=== PATIENT | female | born 1980 | race Caucasian/White ===

== ENCOUNTER 2022-07-01 13:15 | Emergency (ER) | payer OTHER ==
[2022-07-01 13:26] VITALS: TEMP 98.2; BMI 22.6
[2022-07-01 15:34] LABS: HEMATOCRIT 34.5 % (32.4-45.2); HEMOGLOBIN 11.3 GM/dL (10.7-15.3); MCH 28.5 pg (25.7-33.7); MCHC 32.8 g/dl (32.0-36.0); MEAN PLT VOLUME 7.3 fl (7.5-11.1); PLATELET COUNT 544 10^3/uL (134-434); RBC 3.97 M/mm3 (3.60-5.2); RDW 14.4 % (11.6-15.6)
[2022-07-01 15:53] LABS: CHLORIDE 102 mmol/L (98-107); SODIUM 138 mmol/L (136-145)
[2022-07-01 15:55] LABS: CALCIUM 9.2 mg/dL (8.5-10.1)
[2022-07-01 15:56] LABS: ALBUMIN 2.8 g/dl (3.4-5.0); ANION GAP 9 MMOL/L (8-16); CO2 26 mmol/L (21-32); GLUCOSE,RANDOM 88 mg/dL (74-106)
[2022-07-01 15:59] LABS: CREATININE 0.5 mg/dL (0.55-1.3); SGOT/AST 28 U/L (15-37); SGPT/ALT 27 U/L (13-61)
[2022-07-01 16:01] LABS: BILIRUBIN,TOTAL < 0.1 mg/dL (0.2-1)
[2022-07-01 16:02] LABS: ALK PHOS 84 U/L (45-117)
[2022-07-01 17:01] LABS: ANISOCYTOSIS 1+; MACROCYTOSIS 0; OVALOCYTE 1+
[2022-07-01 17:18] VITALS: BP 115/62; PULSE 68; RESP 17
[2022-07-01 18:01] LABS: BASO % 0.4 % (0-2.0); EOS % 0.8 % (0-4.5); HEMATOCRIT 33.3 % (32.4-45.2); LYMPH % 14.6 % (8-40); MCH 28.7 pg (25.7-33.7); MEAN CELL VOLUME 86.9 fl (80-96); MEAN PLT VOLUME 6.8 fl (7.5-11.1); MONO % 4.4 % (3.8-10.2); NEUT % 79.8 % (42.8-82.8); PLATELET COUNT 552 10^3/uL (134-434); RBC 3.83 M/mm3 (3.60-5.2); RDW 14.4 % (11.6-15.6); WHITE BLOOD COUNT 14.7 K/mm3 (4.0-10.0)
[2022-07-01 18:27] LABS: ANISOCYTOSIS 1+; MACROCYTOSIS 0; TEAR DROP CELLS 1+
== END 2022-07-01 19:05 | disposition home or self-care (01) ==
LOC: JER 13:15
DX: N93.9 Abnormal uterine and vaginal bleeding, unspecified (principal)
CPT/HCPCS: 36415; 76830-TC; 80053; 85025; 86850; 86900; 86901; 99284-25